=== PATIENT | male | born 1945 | race Caucasian/White ===

== ENCOUNTER 2016-08-02 12:18 | Outpatient (CLI) | payer MEDICARE | END 2016-08-02 23:59 | DX: E78.2 Mixed hyperlipidemia (principal); G89.29 Other chronic pain; Z79.899 Other long term (current) drug therapy; Z72.89 Other problems related to lifestyle; J44.9 Chronic obstructive pulmonary disease, unspecified; R97.20 Elevated prostate specific antigen [PSA] | CPT/HCPCS: 36415; 80053; 80061; 84443; 85025; 86803; G0103 ==

== ENCOUNTER 2016-11-04 08:31 | Outpatient (CLI) | payer MEDICARE | END 2016-11-04 08:32 | disposition home or self-care (01) | DX: B18.2 Chronic viral hepatitis C (principal) ==

== ENCOUNTER 2016-11-19 08:10 | Outpatient (CLI) | payer MEDICARE ==
[2016-11-19 08:38] LABS: BASOPHILS # (AUTO) 0.1 10^3/uL (0.0-0.1); BASOPHILS % (AUTO) 0.8 %; EOSINOPHILS # (AUTO) 0.6 10^3/uL (0.0-0.7); EOSINOPHILS % (AUTO) 7.9 %; HCT - HEMATOCRIT 49.3 % (42.0-52.0); HGB - HEMOGLOBIN 17.1 g/dL (14.0-18.0); LYMPHOCYTES # (AUTO) 2.3 10^3/uL (1.5-3.5); LYMPHOCYTES % (AUTO) 29.8 %; MEAN CORPUSCULAR HEMOGLOBIN 32.1 pg (27.0-31.0); MEAN CORPUSCULAR HGB CONC 34.7 g/dL (32.0-36.0); MEAN CORPUSCULAR VOLUME 92.6 fL (80.0-94.0); MEAN PLATELET VOLUME 8.7 fL (7.4-11.4); MONOCYTES # (AUTO) 0.9 10^3/uL (0.0-1.0); NEUTROPHILS # (AUTO) 3.9 10^3/uL (1.5-6.6); NEUTROPHILS % (AUTO) 49.5 %; NUCLEATED RED BLOOD CELLS AUTO 0.1 /100WBC; RED BLOOD COUNT 5.32 10^6/uL (4.70-6.10); RED CELL DISTRIBUTION WIDTH 13.8 % (12.0-15.0); UNCORRECTED WHITE BLOOD COUNT 7.9 x10^3/uL; WHITE BLOOD COUNT 7.9 x10^3/uL (4.8-10.8)
[2016-11-19 08:52] LABS: PT - PROTHROMBIN TIME 11.2 secs (9.9-12.6)
[2016-11-19 08:55] LABS: BILIRUBIN,DIRECT 0.2 mg/dL (0.1-0.5); CALCIUM 9.5 mg/dL (8.5-10.3); CREATININE 1.1 mg/dL (0.6-1.2); TOTAL PROTEIN 7.4 g/dL (6.7-8.2)
== END 2016-11-19 08:11 | disposition home or self-care (01) ==
LOC: LAB 08:10
PROVIDERS: ATTEND Internal Medicine
DX: B18.2 Chronic viral hepatitis C (principal)
CPT/HCPCS: 36415; 80048; 80076; 85025; 85610; 87522

== ENCOUNTER 2017-01-14 08:00 | Outpatient (CLI) | payer MEDICARE ==
[2017-01-14 12:22] LABS: BASOPHILS % (AUTO) 0.5 %; EOSINOPHILS # (AUTO) 0.3 10^3/uL (0.0-0.7); EOSINOPHILS % (AUTO) 4.5 %; HCT - HEMATOCRIT 46.9 % (42.0-52.0); HGB - HEMOGLOBIN 16.2 g/dL (14.0-18.0); LYMPHOCYTES # (AUTO) 2.5 10^3/uL (1.5-3.5); LYMPHOCYTES % (AUTO) 32.8 %; MEAN CORPUSCULAR HGB CONC 34.6 g/dL (32.0-36.0); MEAN CORPUSCULAR VOLUME 92.6 fL (80.0-94.0); MEAN PLATELET VOLUME 9.1 fL (7.4-11.4); MONOCYTES # (AUTO) 0.8 10^3/uL (0.0-1.0); MONOCYTES % (AUTO) 10.7 %; NEUTROPHILS # (AUTO) 3.9 10^3/uL (1.5-6.6); NEUTROPHILS % (AUTO) 51.5 %; NUCLEATED RED BLOOD CELLS AUTO 0.1 /100WBC; RED BLOOD COUNT 5.06 10^6/uL (4.70-6.10); RED CELL DISTRIBUTION WIDTH 13.7 % (12.0-15.0); UNCORRECTED WHITE BLOOD COUNT 7.5 x10^3/uL; WHITE BLOOD COUNT 7.5 x10^3/uL (4.8-10.8)
[2017-01-14 12:52] LABS: ALBUMIN/GLOBULIN RATIO 1.3 (1.0-2.2); CALCIUM 9.4 mg/dL (8.5-10.3); POTASSIUM 3.9 mmol/L (3.5-5.0); TOTAL PROTEIN 7.2 g/dL (6.7-8.2)
== END 2017-01-14 08:01 | disposition home or self-care (01) ==
LOC: LAB.N 08:00
PROVIDERS: ATTEND Internal Medicine
DX: B18.2 Chronic viral hepatitis C (principal)
CPT/HCPCS: 36415; 80053; 85025

== ENCOUNTER 2017-01-28 08:45 | Outpatient (CLI) | payer MEDICARE ==
[2017-01-28 13:00] LABS: BASOPHILS % (AUTO) 0.5 %; EOSINOPHILS # (AUTO) 0.3 10^3/uL (0.0-0.7); EOSINOPHILS % (AUTO) 3.5 %; HCT - HEMATOCRIT 46.9 % (42.0-52.0); HGB - HEMOGLOBIN 16.2 g/dL (14.0-18.0); LYMPHOCYTES % (AUTO) 27.9 %; MEAN CORPUSCULAR HEMOGLOBIN 31.9 pg (27.0-31.0); MEAN CORPUSCULAR HGB CONC 34.5 g/dL (32.0-36.0); MEAN CORPUSCULAR VOLUME 92.6 fL (80.0-94.0); MONOCYTES # (AUTO) 0.6 10^3/uL (0.0-1.0); NEUTROPHILS # (AUTO) 4.2 10^3/uL (1.5-6.6); NEUTROPHILS % (AUTO) 59.1 %; NUCLEATED RED BLOOD CELLS AUTO 0.1 /100WBC; RED BLOOD COUNT 5.07 10^6/uL (4.70-6.10); RED CELL DISTRIBUTION WIDTH 13.4 % (12.0-15.0); UNCORRECTED WHITE BLOOD COUNT 7.1 x10^3/uL; WHITE BLOOD COUNT 7.1 x10^3/uL (4.8-10.8)
[2017-01-28 13:12] LABS: ALBUMIN/GLOBULIN RATIO 1.4 (1.0-2.2); BILIRUBIN,TOTAL 0.7 mg/dL (0.2-1.0); CALCIUM 9.6 mg/dL (8.5-10.3); CREATININE 1.1 mg/dL (0.6-1.2); POTASSIUM 3.8 mmol/L (3.5-5.0); TOTAL PROTEIN 7.2 g/dL (6.7-8.2)
== END 2017-01-28 08:46 | disposition home or self-care (01) ==
LOC: LAB.N 08:45
PROVIDERS: ATTEND Internal Medicine
DX: B18.2 Chronic viral hepatitis C (principal)
CPT/HCPCS: 36415; 80053; 85025; 87522

== ENCOUNTER 2017-03-25 08:59 | Outpatient (CLI) | payer MEDICARE ==
[2017-03-25 13:19] LABS: BASOPHILS % (AUTO) 0.7 %; EOSINOPHILS # (AUTO) 0.2 10^3/uL (0.0-0.7); EOSINOPHILS % (AUTO) 3.2 %; HCT - HEMATOCRIT 46.9 % (42.0-52.0); HGB - HEMOGLOBIN 16.1 g/dL (14.0-18.0); LYMPHOCYTES # (AUTO) 2.3 10^3/uL (1.5-3.5); LYMPHOCYTES % (AUTO) 31.9 %; MEAN CORPUSCULAR HEMOGLOBIN 31.9 pg (27.0-31.0); MEAN CORPUSCULAR HGB CONC 34.4 g/dL (32.0-36.0); MEAN CORPUSCULAR VOLUME 92.6 fL (80.0-94.0); MEAN PLATELET VOLUME 8.8 fL (7.4-11.4); MONOCYTES # (AUTO) 0.6 10^3/uL (0.0-1.0); MONOCYTES % (AUTO) 8.2 %; NUCLEATED RED BLOOD CELLS AUTO 0.1 /100WBC; RED BLOOD COUNT 5.06 10^6/uL (4.70-6.10); RED CELL DISTRIBUTION WIDTH 13.4 % (12.0-15.0); UNCORRECTED WHITE BLOOD COUNT 7.2 x10^3/uL; WHITE BLOOD COUNT 7.2 x10^3/uL (4.8-10.8)
[2017-03-25 13:46] LABS: ALBUMIN/GLOBULIN RATIO 1.4 (1.0-2.2); BILIRUBIN,TOTAL 0.8 mg/dL (0.2-1.0); CALCIUM 9.1 mg/dL (8.5-10.3); POTASSIUM 3.5 mmol/L (3.5-5.0); TOTAL PROTEIN 6.9 g/dL (6.7-8.2)
== END 2017-03-25 09:00 | disposition home or self-care (01) ==
LOC: LAB.N 08:59
PROVIDERS: ATTEND Internal Medicine
DX: B18.2 Chronic viral hepatitis C (principal)
CPT/HCPCS: 36415; 80053; 85025; 87522

== ENCOUNTER 2017-05-03 16:21 | Outpatient (CLI) | payer MEDICARE ==
[2017-05-03 16:38] LABS: BASOPHILS # (AUTO) 0.1 10^3/uL (0.0-0.1); EOSINOPHILS # (AUTO) 0.2 10^3/uL (0.0-0.7); EOSINOPHILS % (AUTO) 2.8 %; HGB - HEMOGLOBIN 16.3 g/dL (14.0-18.0); LYMPHOCYTES # (AUTO) 2.8 10^3/uL (1.5-3.5); LYMPHOCYTES % (AUTO) 34.6 %; MEAN CORPUSCULAR HEMOGLOBIN 31.9 pg (27.0-31.0); MEAN CORPUSCULAR HGB CONC 34.7 g/dL (32.0-36.0); MEAN CORPUSCULAR VOLUME 91.9 fL (80.0-94.0); MEAN PLATELET VOLUME 8.2 fL (7.4-11.4); MONOCYTES # (AUTO) 0.9 10^3/uL (0.0-1.0); MONOCYTES % (AUTO) 11.1 %; NEUTROPHILS # (AUTO) 4.1 10^3/uL (1.5-6.6); NEUTROPHILS % (AUTO) 50.5 %; RED BLOOD COUNT 5.11 10^6/uL (4.70-6.10); RED CELL DISTRIBUTION WIDTH 13.6 % (12.0-15.0); UNCORRECTED WHITE BLOOD COUNT 8.1 x10^3/uL; WHITE BLOOD COUNT 8.1 x10^3/uL (4.8-10.8)
[2017-05-03 16:54] LABS: ALBUMIN/GLOBULIN RATIO 1.4 (1.0-2.2); BILIRUBIN,TOTAL 0.4 mg/dL (0.2-1.0); BUN - BLOOD UREA NITROGEN 14 mg/dL (6-20); CALCIUM 9.3 mg/dL (8.5-10.3); CARBON DIOXIDE - CO2 25 mmol/L (21-32); CHLORIDE 105 mmol/L (101-111); CREATININE 0.8 mg/dL (0.6-1.2); GFR - MDRD 96 (>89); GLUCOSE 94 mg/dL (70-100); LIPASE 31 U/L (22-51); POTASSIUM 3.8 mmol/L (3.5-5.0); SODIUM 137 mmol/L (135-145); TOTAL PROTEIN 7.5 g/dL (6.7-8.2)
== END 2017-05-03 16:22 | disposition home or self-care (01) ==
LOC: LAB 16:21
PROVIDERS: ATTEND Physician Assistant Medical
DX: R10.11 Right upper quadrant pain (principal); R19.7 Diarrhea, unspecified
CPT/HCPCS: 36415; 80053; 83690; 85025; 85651; 86140

== ENCOUNTER 2017-05-05 11:30 | Outpatient (CLI) | payer MEDICARE ==
[2017-05-07 11:16] LABS: TEST RESULT REPORT
== END 2017-05-05 11:31 | disposition home or self-care (01) ==
LOC: LAB.R 11:30
PROVIDERS: ATTEND Physician Assistant Medical
DX: R19.7 Diarrhea, unspecified (principal)
CPT/HCPCS: 81599; 82705; 83630; 87045; 87046; 87329; 87493; 89055

== ENCOUNTER 2017-06-24 09:00 | Outpatient (CLI) | payer MEDICARE ==
[2017-06-24 12:54] LABS: BASOPHILS % (AUTO) 0.3 %; EOSINOPHILS # (AUTO) 0.2 10^3/uL (0.0-0.7); EOSINOPHILS % (AUTO) 2.6 %; HGB - HEMOGLOBIN 16.3 g/dL (14.0-18.0); LYMPHOCYTES # (AUTO) 2.5 10^3/uL (1.5-3.5); MEAN CORPUSCULAR HEMOGLOBIN 31.5 pg (27.0-31.0); MEAN CORPUSCULAR HGB CONC 33.9 g/dL (32.0-36.0); MEAN CORPUSCULAR VOLUME 92.9 fL (80.0-94.0); MONOCYTES # (AUTO) 0.8 10^3/uL (0.0-1.0); MONOCYTES % (AUTO) 9.7 %; NEUTROPHILS # (AUTO) 4.9 10^3/uL (1.5-6.6); NEUTROPHILS % (AUTO) 58.4 %; PLT - PLATELET COUNT 231 10^3/uL (130-450); RED BLOOD COUNT 5.19 10^6/uL (4.70-6.10); RED CELL DISTRIBUTION WIDTH 13.8 % (12.0-15.0); WHITE BLOOD COUNT 8.5 x10^3/uL (4.8-10.8)
[2017-06-24 12:55] LABS: ALBUMIN/GLOBULIN RATIO 1.3 (1.0-2.2); BILIRUBIN,TOTAL 0.8 mg/dL (0.2-1.0); CALCIUM 9.1 mg/dL (8.5-10.3); TOTAL PROTEIN 7.2 g/dL (6.7-8.2)
[2017-06-30 01:03] LABS: HCV RNA QNT <1.18 NOT DETECTED Log IU/mL (<1.18); HCV RNA QUANT RT PCR <15 NOT DETECTED IU/mL (<15)
== END 2017-06-24 09:01 | disposition home or self-care (01) ==
LOC: LAB.N 09:00
PROVIDERS: ATTEND Internal Medicine
DX: B18.2 Chronic viral hepatitis C (principal)
CPT/HCPCS: 36415; 80053; 85025; 87522

== ENCOUNTER 2017-10-20 09:21 | Outpatient (CLI) | payer MEDICARE ==
[2017-10-20 12:41] LABS: BASOPHILS % (AUTO) 0.4 %; EOSINOPHILS # (AUTO) 0.1 10^3/uL (0.0-0.7); EOSINOPHILS % (AUTO) 1.6 %; HGB - HEMOGLOBIN 16.8 g/dL (14.0-18.0); LYMPHOCYTES # (AUTO) 2.4 10^3/uL (1.5-3.5); MEAN CORPUSCULAR HEMOGLOBIN 31.8 pg (27.0-31.0); MEAN CORPUSCULAR HGB CONC 34.2 g/dL (32.0-36.0); MEAN PLATELET VOLUME 8.9 fL (7.4-11.4); MONOCYTES # (AUTO) 1.2 10^3/uL (0.0-1.0); MONOCYTES % (AUTO) 16.7 %; NEUTROPHILS # (AUTO) 3.2 10^3/uL (1.5-6.6); NEUTROPHILS % (AUTO) 46.3 %; PLT - PLATELET COUNT 206 10^3/uL (130-450); RED BLOOD COUNT 5.29 10^6/uL (4.70-6.10); RED CELL DISTRIBUTION WIDTH 14.2 % (12.0-15.0); WHITE BLOOD COUNT 6.9 x10^3/uL (4.8-10.8)
[2017-10-20 12:51] LABS: ALBUMIN/GLOBULIN RATIO 1.3 (1.0-2.2); ALKALINE PHOSPHATASE 67 IU/L (42-121); ALT ALANINE AMINOTRANSFERASE 27 IU/L (10-60); AST ASPARTATE AMINOTRANSFERASE 23 IU/L (10-42); BILIRUBIN,TOTAL 0.8 mg/dL (0.2-1.0); BUN - BLOOD UREA NITROGEN 14 mg/dL (6-20); CALCIUM 9.2 mg/dL (8.5-10.3); CARBON DIOXIDE - CO2 24 mmol/L (21-32); CHLORIDE 107 mmol/L (101-111); CHOL/HDL RATIO 5.1 (<5.0); CHOLESTEROL 199 mg/dL; CREATININE 0.9 mg/dL (0.6-1.2); GFR - MDRD 83 (>89); GLUCOSE 91 mg/dL (70-100); HDL CHOLESTEROL 39 mg/dL; LDL CHOLESTEROL,CALCULATED 133 mg/dL; LDL/HDL RATIO 3.4 (<3.6); SODIUM 138 mmol/L (135-145); TOTAL PROTEIN 7.1 g/dL (6.7-8.2); VLDL CHOLESTEROL 27 mg/dL
== END 2017-10-20 09:22 ==
LOC: LAB.N 09:21
PROVIDERS: ATTEND Physician Assistant Medical
DX: Z79.899 Other long term (current) drug therapy (principal); E78.2 Mixed hyperlipidemia
CPT/HCPCS: 36415; 80053; 80061; 83721; 84443; 85025

== ENCOUNTER 2017-11-17 06:55 | Day surgery (SDC) | payer MEDICARE ==
[2017-11-17] MEDS ORDERED: LACTATED RINGERS 1,000 ML IV ONE (07:04)
[2017-11-17] MEDS ORDERED: MIDAZOLAM 2 MG/2 ML VIAL IVP ONE (08:57)
[2017-11-17] MEDS ORDERED: fentaNYL 250 MCG/5 ML VIAL IVP ONE (08:57)
[2017-11-17] MEDS ORDERED: LIDO GARGLE 30 ML BOTTLE ONE (09:00)
[2017-11-17] MEDS ORDERED: LIDO GARGLE 30 ML BOTTLE PO ONE (09:04)
[2017-11-17 10:12] VITALS: BP 114/75
== END 2017-11-17 06:56 | disposition home or self-care (01) ==
LOC: SDS 06:55
PROVIDERS: ATTEND Internal Medicine Gastroenterology
PROC: 0DB38ZX Excision of Lower Esophagus, Via Natural or Artificial Opening Endoscopic, Diagnostic (ICD-10-PCS; 2017-11-17)
PROC: 0DBN8ZX Excision of Sigmoid Colon, Via Natural or Artificial Opening Endoscopic, Diagnostic (ICD-10-PCS; 2017-11-17)
PROC: 0DB98ZX Excision of Duodenum, Via Natural or Artificial Opening Endoscopic, Diagnostic (ICD-10-PCS; principal; 2017-11-17 08:15)
PROC: 0DB78ZX Excision of Stomach, Pylorus, Via Natural or Artificial Opening Endoscopic, Diagnostic (ICD-10-PCS; 2017-11-17 08:15)
DX: R19.7 Diarrhea, unspecified (principal); K44.9 Diaphragmatic hernia without obstruction or gangrene; K29.90 Gastroduodenitis, unspecified, without bleeding; K31.9 Disease of stomach and duodenum, unspecified; K22.10 Ulcer of esophagus without bleeding; K63.5 Polyp of colon; J43.9 Emphysema, unspecified; Z87.891 Personal history of nicotine dependence
CPT/HCPCS: 43239; 45380; 87081; A9270; J3010; J7120; 88305

== ENCOUNTER 2018-03-03 08:34 | Outpatient (CLI) | payer MEDICARE ==
[2018-03-03 12:23] LABS: BASOPHILS # (AUTO) 0.1 10^3/uL (0.0-0.1); BASOPHILS % (AUTO) 0.7 %; EOSINOPHILS # (AUTO) 0.3 10^3/uL (0.0-0.7); EOSINOPHILS % (AUTO) 3.4 %; HGB - HEMOGLOBIN 16.6 g/dL (14.0-18.0); LYMPHOCYTES # (AUTO) 2.4 10^3/uL (1.5-3.5); LYMPHOCYTES % (AUTO) 29.2 %; MEAN CORPUSCULAR HEMOGLOBIN 32.4 pg (27.0-31.0); MEAN CORPUSCULAR HGB CONC 34.8 g/dL (32.0-36.0); MONOCYTES # (AUTO) 0.8 10^3/uL (0.0-1.0); MONOCYTES % (AUTO) 10.4 %; NEUTROPHILS # (AUTO) 4.6 10^3/uL (1.5-6.6); NEUTROPHILS % (AUTO) 56.3 %; PLT - PLATELET COUNT 242 10^3/uL (130-450); RED BLOOD COUNT 5.13 10^6/uL (4.70-6.10); RED CELL DISTRIBUTION WIDTH 13.9 % (12.0-15.0); WHITE BLOOD COUNT 8.1 x10^3/uL (4.8-10.8)
[2018-03-03 12:45] LABS: CHOL/HDL RATIO 4.9 (<5.0); CHOLESTEROL 219 mg/dL; HDL CHOLESTEROL 45 mg/dL; LDL CHOLESTEROL,CALCULATED 142 mg/dL; LDL/HDL RATIO 3.2 (<3.6); VLDL CHOLESTEROL 32 mg/dL
== END 2018-03-03 08:35 | disposition home or self-care (01) ==
LOC: LAB.N 08:34
PROVIDERS: ATTEND Physician Assistant Medical
DX: D72.821 Monocytosis (symptomatic) (principal); E78.2 Mixed hyperlipidemia; Z79.899 Other long term (current) drug therapy
CPT/HCPCS: 36415; 80061; 83721; 85025

== ENCOUNTER 2018-03-08 10:07 | Emergency (ER) | payer MEDICARE ==
[2018-03-08 11:17] LABS: BILIRUBIN,URINE NEGATIVE (NEGATIVE); GLUCOSE, URINE (UA) NEGATIVE (NEGATIVE); KETONES,URINE (UA) NEGATIVE (NEGATIVE); LEUKOCYTE ESTERASE, URINE NEGATIVE (NEGATIVE); NITRITE,URINE NEGATIVE (NEGATIVE); OCCULT BLOOD,URINE MODERATE (NEGATIVE); PROTEIN,URINE NEGATIVE (NEGATIVE); UROBILINOGEN,URINE 0.2 (NORMAL) E.U./dL (NORMAL)
[2018-03-08] MEDS ORDERED: SODIUM CHLORIDE 0.9% 1,000 ML IV ONE (11:17)
[2018-03-08] MEDS ORDERED: KETOROLAC 60 MG/2 ML VIAL IVP STA (11:17)
[2018-03-08 11:18] LABS: CLARITY,URINE CLEAR (CLEAR)
--- NOTE | 2018-03-08 11:20 | ED Physician Documentation ---
History of Present Illness - Stated complaint Stated Complaint: SIDE PX - Chief complaint Chief Complaint: Abd Pain - History obtained from History obtained from: Patient - History of Present Illness Timing: Last night Pain level max: 7 Pain level now: 5 - Additonal information Additional information: Patient is a 73-year-old male who complains of urinary frequency and dysuria since last night. Also has developed right flank pain today. Has had one kidney stone in the past but states this does not feel that bad. Denies any fevers. Denies any hematuria. No vomiting. Has not taken anything for the pain. Nothing makes it better or worse Review of Systems Constitutional: denies: Fever, Chills GI: denies: Vomiting, Diarrhea Skin: denies: Rash Musculoskeletal: denies: Neck pain Neurologic: denies: Headache PD PAST MEDICAL HISTORY - Past Medical History Cardiovascular: None Respiratory: COPD Endocrine/Autoimmune: None GI: GERD : Benign prostate hypertrophy Musculoskeletal: Osteoarthritis Derm: None - Past Surgical History Past Surgical History: Yes General: Cholecystectomy, Appendectomy - Present Medications Home Medications: Ambulatory Orders Medication Instructions Recorded Confirmed Albuterol Sulf [Ventolin Hfa 1 - 2 puffs INH Q4HR PRN 11/16/17 11/16/17 Inhaler] Budesonide/Formoterol Fumarate 1 puffs PO DAILY 11/16/17 11/17/17 [Symbicort 160-4.5 Mcg Inhaler] Niacin (Inositol Niacinate) 500 mg PO DAILY 11/16/17 11/17/17 [Niacin 500 mg Capsule] Hydrocodone/Acetaminophen 1 - 2 each PO Q6H PRN #14 tablet 03/08/18 [Hydrocodon-Acetaminophen 5-325] Ibuprofen [Motrin] 800 mg PO Q8H PRN #30 tablet 03/08/18 Ondansetron Odt [Zofran] 4 mg TL Q6H PRN #10 tablet 03/08/18 Tamsulosin HCl [Flomax] 0.4 mg PO 03/08/18 - Allergies Allergies/Adverse Reactions: Allergies Allergy/AdvReac Type Severity Reaction Status Date / Time codeine Allergy Mild Emesis Verified 03/08/18 11:10 Latex, Natural Rubber Allergy Rash Verified 03/08/18 11:10 - Social History Does the pt smoke?: No Smoking Status: Never smoker Does the pt drink ETOH?: No Does the pt have substance abuse?: No - Immunizations Immunizations are current?: Yes - POLST Patient has POLST: No PD ED PE NORMAL - Vitals Vital signs reviewed: Yes - General General: Alert and oriented X 3, No acute distress, Well developed/nourished - HEENT HEENT: PERRL, Moist mucous membranes - Neck Neck: Supple, no meningeal sign - Cardiac Cardiac: RRR, Strong equal pulses - Respiratory Respiratory: No respiratory distress, Clear bilaterally - Abdomen Abdomen: Soft, Non tender, Non distended - Back Back: No CVA TTP, No spinal TTP - Derm Derm: Warm and dry - Extremities Extremities: No edema, No calf tenderness / cord - Neuro Neuro: Alert and oriented X 3 - Psych Psych: Normal mood, Normal affect Results - Vitals Vitals: Vital Signs - 24 hr 03/08/18 10:32 Temperature 36 C L Heart Rate 90 Respiratory 20 Rate Blood Pressure 117/72 O2 Saturation 99 Oxygen O2 Source Room air - Labs Labs: Laboratory Tests 03/08/18 10:53 Urine Color YELLOW Urine Clarity CLEAR Urine pH 7.0 Ur Specific [place] 1.010 Urine Protein NEGATIVE Urine Glucose (UA) NEGATIVE Urine Ketones NEGATIVE Urine Occult Blood MODERATE H Urine Nitrite NEGATIVE Urine Bilirubin NEGATIVE Urine Urobilinogen 0.2 (NORMAL) Ur Leukocyte Esterase NEGATIVE Ur Microscopic Review INDICATED Urine Culture Comments Not Reportable - Rads (name of study) CT abd/pelvis Radiology: Prelim report reviewed, EMP read contemporaneously, See rad report (3 mm calculus within the right ureterovesicular junction versus base of the bladder with mild hydronephrosis, mild perinephric fat stranding and mild hydroureter. ) PD MEDICAL DECISION MAKING - ED course Complexity details: reviewed results, re-evaluated patient, considered differential, d/w patient ED course: Patient is a 73-year-old male with what appears to be a right-sided ureteral stone that passed in the emergency department. Pain resolved. We will continue supportive care and follow-up with his doctor. Patient counseled regarding signs and symptoms for which I believe and urgent re-evaluation would be necessary. Patient with good understanding of and agreement to plan and is comfortable going home at this time This document was made in part using voice recognition software. While efforts are made to proofread this document, sound alike and grammatical errors may occur. - Sepsis Event Vital Signs: Vital Signs - 24 hr 03/08/18 10:32 Temperature 36 C L Heart Rate 90 Respiratory 20 Rate Blood Pressure 117/72 O2 Saturation 99 Oxygen O2 Source Room air Departure - Departure Disposition: 01 Home, Self Care Clinical Impression: Ureteral calculus, right Condition: Good Instructions: ED Stone Renal W Colic Follow-Up: Rica Vigil PA-C [Primary Care Provider] - Within 1 week Prescriptions: Hydrocodone/Acetaminophen [Hydrocodon-Acetaminophen 5-325] 1 - 2 each PO Q6H PRN #14 tablet PRN Reason: pain Ibuprofen [Motrin] 800 mg PO Q8H PRN #30 tablet PRN Reason: PAIN &/OR FEVER Ondansetron Odt [Zofran] 4 mg TL Q6H PRN #10 tablet PRN Reason: Nausea / Vomiting Comments: Return if you worsen. You do have a small kidney stone and this should pass. Do not drink alcohol or drive while on narcotic pain medicine. Note that many narcotic pain relievers also contain tylenol/acetaminophen. Please ensure that your total dose of acetaminophen from all sources does not exceed 3 grams (3000mg) per day. You may constipated on this medication, take a stool softener such as "Colace" twice a day while you are on it. Also recommend a ibxj-xvy-hulpsrr laxative such as senna or MiraLAX any day that you do not have a bowel movement. If you received narcotic pain medication in the emergency department, do not drive or operate machinery for the next 24 hours. Discharge Date/Time: 03/08/18 12:43
[2018-03-08 11:21] LABS: BACTERIA,URINE None Seen /HPF (None Seen); RBC,URINE 0-5 /HPF (0-5); SQUAMOUS EPITHELIAL CELL,UR RARE Squamous (<= Few)
[2018-03-08] MEDS ORDERED: IOPAMIDOL-300 100 ML VIAL ONE (11:21)
[2018-03-08 11:24] LABS: BASOPHILS # (AUTO) 0.1 10^3/uL (0.0-0.1); BASOPHILS % (AUTO) 0.5 %; EOSINOPHILS # (AUTO) 0.1 10^3/uL (0.0-0.7); EOSINOPHILS % (AUTO) 1.1 %; LYMPHOCYTES # (AUTO) 1.7 10^3/uL (1.5-3.5); LYMPHOCYTES % (AUTO) 15.5 %; MEAN CORPUSCULAR HEMOGLOBIN 32.3 pg (27.0-31.0); MEAN CORPUSCULAR VOLUME 92.2 fL (80.0-94.0); MEAN PLATELET VOLUME 8.1 fL (7.4-11.4); MONOCYTES # (AUTO) 0.8 10^3/uL (0.0-1.0); MONOCYTES % (AUTO) 7.7 %; NEUTROPHILS # (AUTO) 8.1 10^3/uL (1.5-6.6); NEUTROPHILS % (AUTO) 75.2 %; PLT - PLATELET COUNT 245 10^3/uL (130-450); RED BLOOD COUNT 5.26 10^6/uL (4.70-6.10); WHITE BLOOD COUNT 10.8 x10^3/uL (4.8-10.8)
[2018-03-08 11:36] LABS: ALBUMIN 4.1 g/dL (3.2-5.5); ALBUMIN/GLOBULIN RATIO 1.3 (1.0-2.2); BILIRUBIN,TOTAL 0.7 mg/dL (0.2-1.0); CALCIUM 9.3 mg/dL (8.5-10.3); TOTAL PROTEIN 7.2 g/dL (6.7-8.2)
[2018-03-08] MEDS ORDERED: IOPAMIDOL-300 100 ML VIAL IVP ONE (12:36)
[2018-03-08 12:44] VITALS: BP 121/64
--- NOTE | 2018-03-08 13:08 | CT Report ---
Reason: R flank pain, dysuria Procedure Date: 03/08/2018 Accession Number: [id number] / [id number] Procedure: CT - Abdomen/Pelvis W/ CPT Code: FULL RESULT: EXAM: CT ABDOMEN AND PELVIS EXAM DATE: 03/08/2018 12:17 PM. CLINICAL HISTORY: R flank pain, dysuria. COMPARISONS: None. TECHNIQUE: Routine helical CT imaging was performed through the abdomen and pelvis. IV contrast: ISOVUE 300 100mL. Enteric contrast: No. Reconstructions: Coronal and sagittal. In accordance with CT protocol optimization, one or more of the following dose reduction techniques were utilized for this exam: automated exposure control, adjustment of mA and/or KV based on patient size, or use of iterative reconstructive technique. FINDINGS: Lung Bases: Linear changes are noted in the lung bases that most likely represent atelectasis. Solid organs: The liver, spleen, pancreas, and adrenal glands are without evidence of an enhancing mass. There are postoperative changes consistent with a cholecystectomy. Mild hydronephrosis and hydroureter seen involving the right renal collecting system. There is mild right perinephric fat stranding. There is a 3 mm calculus at the location of the right ureterovesicular junction versus base of bladder (image 74 of series 4). The left kidney is without evidence of hydronephrosis or hydroureter. No renal mass is identified. Peritoneal Cavity/Bowel: The appendix is normal in appearance. There are no dilated loops of bowel to suggest the presence of an obstruction. There is no evidence of diverticulosis or diverticulitis. Pelvic Organs: No mass or cyst is seen within the pelvis. Vasculature: There is atherosclerosis of the aorta and its branches. There is no evidence of abdominal aortic aneurysm. Bones: Degenerative changes of the lumbar spine are noted. IMPRESSION: 3 mm calculus within the right ureterovesicular junction versus base of the bladder with mild hydronephrosis, mild perinephric fat stranding and mild hydroureter. Atherosclerosis of the aorta and its branches. RADIA
== END 2018-03-08 12:43 | disposition home or self-care (01) ==
LOC: ED 10:07
DX: N13.2 Hydronephrosis with renal and ureteral calculous obstruction (principal); J44.9 Chronic obstructive pulmonary disease, unspecified
CPT/HCPCS: 36415; 74177; 80053; 81001; 83690; 85025; 96361; 96374; 99283; 99284; Q9967; 81003; 87086

== ENCOUNTER 2018-05-01 11:53 | Outpatient (CLI) | payer MEDICARE ==
--- NOTE | 2018-05-01 13:15 | XRAY Report ---
Reason: HAND,PAIN,LEFT Procedure Date: 05/01/2018 Accession Number: [id number] / [id number] Procedure: XR - Hand 3 View LT CPT Code: FULL RESULT: EXAM: LEFT HAND RADIOGRAPHY EXAM DATE: 05/01/2018 12:01 PM. CLINICAL HISTORY: HAND,PAIN,LEFT. COMPARISON: XR HAND MIN 3 VIEWS 01/18/2010 7:13 PM. TECHNIQUE: 3 views. FINDINGS: Bones: Acute, nondisplaced fracture through the proximal to mid aspect of the fifth proximal phalanx. The fracture line does not definitely involve the articular surface. No abnormal angulation. No other fracture. The bones appear diffusely demineralized. Joints: No dislocation. Mild to moderate degenerative change. Soft Tissues: Soft tissue swelling about the fifth digit. IMPRESSION: Acute, nondisplaced fracture of the proximal phalanx of the fifth digit. RADIA
== END 2018-05-01 11:54 | disposition home or self-care (01) ==
LOC: DI 11:53
PROVIDERS: ATTEND Physician Assistant Medical
DX: S62.647A Nondisplaced fracture of proximal phalanx of left little finger, initial encounter for closed fracture (principal)

== ENCOUNTER 2018-07-21 08:00 | Outpatient (CLI) | payer MEDICARE ==
[2018-07-21 14:28] LABS: CHOL/HDL RATIO 4.5 (<5.0); CHOLESTEROL 210 mg/dL; HDL CHOLESTEROL 47 mg/dL; LDL CHOLESTEROL,CALCULATED 135 mg/dL; LDL/HDL RATIO 2.9 (<3.6); VLDL CHOLESTEROL 28 mg/dL
== END 2018-07-21 23:59 | disposition home or self-care (01) ==
LOC: LAB.N 08:00
PROVIDERS: ATTEND Physician Assistant Medical
DX: Z79.899 Other long term (current) drug therapy (principal); E78.2 Mixed hyperlipidemia
CPT/HCPCS: 36415; 80061; 83721

== ENCOUNTER 2018-09-30 08:24 | Outpatient (CLI) | payer MEDICARE ==
--- NOTE | 2018-10-01 13:06 | XRAY Report ---
Reason: HISTORY OF MALIGNANT NEOPLASM OF LEFT BREAST,IMPIN Procedure Date: 09/30/2018 Accession Number: [id number] / [id number] Procedure: XR - Foot 3 View RT CPT Code: FULL RESULT: EXAM: RIGHT FOOT RADIOGRAPHY EXAM DATE: 09/30/2018 08:49 AM. CLINICAL HISTORY: HISTORY OF MALIGNANT NEOPLASM OF LEFT BREAST, gout attack. Evaluate for erosion.. COMPARISON: None. TECHNIQUE: 3 views. FINDINGS: Bones: There is moderate sclerosis of the first metatarsal phalangeal joint. There is no fracture. No erosion. Joints: There is moderate joint space narrowing of the first metatarsal phalangeal joint. There is mild spurring and sclerosis with joint space narrowing of the third distal interphalangeal joint. Soft Tissues: No abnormal soft tissue calcification. IMPRESSION: 1. Joint space narrowing and periarticular sclerosis of the first metatarsal phalangeal joint and third distal interphalangeal joint. No erosions or bony destruction. RADIA
--- NOTE | 2018-10-01 23:22 | XRAY Report ---
Reason: HISTORY OF MALIGNANT NEOPLASM OF LEFT BREAST,IMPIN Procedure Date: 09/30/2018 Accession Number: [id number] / [id number] Procedure: XR - Shoulder 3 View LT CPT Code: FULL RESULT: EXAM: LEFT SHOULDER RADIOGRAPHY EXAM DATE: 09/30/2018 08:46 AM. CLINICAL HISTORY: Chronic shoulder pain. HISTORY OF MALIGNANT NEOPLASM OF LEFT BREAST,IMPIN. COMPARISON: SHOULDER 3 VIEW RT 04/23/2013 9:31 AM CXR2V 02/22/2006 9:30 AM SHOULDER 3 VIEW RT 09/30/2018 8:26 AM. TECHNIQUE: 3 views. FINDINGS: Mild sclerosis seen at the distal clavicle more suggestive for mild degenerative change. A small blastic bone metastasis not completely excluded but seems less likely. Minimal focal area of sclerosis seen laterally at the left humeral head at the greater tuberosity region more suggestive for a bone island but again a tiny blastic bone metastasis is not excluded. Otherwise, no evidence for a metastasis in the left shoulder. No acute fracture or dislocation and alignment is within normal limits. The glenohumeral joint appears within normal limits. IMPRESSION: Mild sclerosis seen at the distal clavicle more suggestive for mild degenerative change. A small blastic bone metastasis not completely excluded but seems less likely. Minimal focal area of sclerosis seen laterally at the left humeral head at the greater tuberosity region more suggestive for a bone island but again a tiny blastic bone metastasis is not excluded. Otherwise, no evidence for a metastasis in the left shoulder. No acute fracture or dislocation and alignment is within normal limits. RADIA
--- NOTE | 2018-10-01 23:25 | XRAY Report ---
Reason: HISTORY OF MALIGNANT NEOPLASM OF LEFT BREAST,IMPIN Procedure Date: 09/30/2018 Accession Number: [id number] / [id number] Procedure: XR - Shoulder 3 View RT CPT Code: FULL RESULT: EXAM: RIGHT SHOULDER RADIOGRAPHY EXAM DATE: 09/30/2018 08:48 AM. CLINICAL HISTORY: HISTORY OF MALIGNANT NEOPLASM OF LEFT BREAST,IMPIN. Chronic shoulder pain. COMPARISON: SHOULDER 3 VIEW RT 04/23/2013 9:31 AM. TECHNIQUE: 3 views. FINDINGS: Mild sclerosis with mild subchondral cysts seen at the distal clavicle is seen with mild degenerative joint disease. The glenohumeral joint appears within normal limits. No acute fracture or dislocation is seen in the alignment is within normal limits. No evidence for bone metastasis. IMPRESSION: No evidence for bone metastasis. No acute bone findings are seen. See above. RADIA
== END 2018-09-30 08:25 | disposition home or self-care (01) ==
LOC: DI 08:24
PROVIDERS: ATTEND Internal Medicine
DX: M25.871 Other specified joint disorders, right ankle and foot (principal); M89.8X1 Other specified disorders of bone, shoulder

== ENCOUNTER 2018-10-04 08:34 | Outpatient (CLI) | payer MEDICARE ==
--- NOTE | 2018-10-04 16:30 | Nuclear Medicine Report ---
Reason: HISTORY OF MALIGNANT NEOPLASM OF LEFT BREAST,IMPIN Procedure Date: 10/04/2018 Accession Number: [id number] / [id number] Procedure: NM - Bone Whole Body CPT Code: FULL RESULT: EXAM: BONE SCAN EXAM DATE: 10/04/2018 01:35 PM. CLINICAL HISTORY: Left breast cancer treated in 2001. Diffuse bone pain. COMPARISON: SHOULDER 3 VIEW RT 09/30/2018 8:26 AM ABDOMEN/PELVIS W/ 03/08/2018 12:10 PM. TECHNIQUE: Following the intravenous administration of 30.4 mCi of technetium 99m MDP and an appropriate delay, a whole-body scan was performed in anterior and posterior projections. Site-specific spot views of the region of interest were obtained in various projections. FINDINGS: Exam Quality: Normal overall osseous radiotracer uptake. Physiological tracer uptake in bilateral collecting systems. Skull: No focal uptake. Thorax: No focal lesions in ribs or sternum. Pelvis: No focal lesions. Spine: No suspicious focal uptake in the cervical or thoracic or lumbar spine. There is degenerative endplate uptake in the lumbar spine, most focally at L2-L3 and L3-L4 levels. There is a mild convex right lumbar scoliosis. Extremities: There is increased uptake at the great toe MTP joints, right greater than left. There is nonspecific focally increased uptake in bilateral hand joints. IMPRESSION: No scintigraphic findings highly concerning for skeletal metastatic disease. RADIA
== END 2018-10-04 08:35 | disposition home or self-care (01) ==
LOC: DI 08:34
PROVIDERS: ATTEND Internal Medicine
DX: Z85.3 Personal history of malignant neoplasm of breast (principal); M54.9 Dorsalgia, unspecified; M25.511 Pain in right shoulder; M25.512 Pain in left shoulder; M79.671 Pain in right foot
CPT/HCPCS: 78306

== ENCOUNTER 2020-08-21 08:21 | Outpatient (CLI) | payer MEDICARE, OTHER ==
[2020-08-21 12:28] LABS: BASOPHILS % (AUTO) 0.4 %; EOSINOPHILS # (AUTO) 0.2 10^3/uL (0.0-0.7); EOSINOPHILS % (AUTO) 2.1 %; HCT - HEMATOCRIT 49.9 % (42.0-52.0); HGB - HEMOGLOBIN 17.3 g/dL (14.0-18.0); LYMPHOCYTES # (AUTO) 1.9 10^3/uL (1.5-3.5); LYMPHOCYTES % (AUTO) 26.1 %; MEAN CORPUSCULAR HEMOGLOBIN 32.7 pg (27.0-31.0); MEAN CORPUSCULAR HGB CONC 34.7 g/dL (32.0-36.0); MEAN CORPUSCULAR VOLUME 94.3 fL (80.0-94.0); MEAN PLATELET VOLUME 11.1 fL (7.4-11.4); MONOCYTES # (AUTO) 0.7 10^3/uL (0.0-1.0); MONOCYTES % (AUTO) 9.3 %; NEUTROPHILS # (AUTO) 4.4 10^3/uL (1.5-6.6); NEUTROPHILS % (AUTO) 61.7 %; PLT - PLATELET COUNT 229 10^3/uL (130-450); RED BLOOD COUNT 5.29 10^6/uL (4.70-6.10); RED CELL DISTRIBUTION WIDTH 13.3 % (12.0-15.0); WHITE BLOOD COUNT 7.2 x10^3/uL (4.8-10.8)
[2020-08-21 12:46] LABS: ALBUMIN/GLOBULIN RATIO 1.3 (1.0-2.2); ALKALINE PHOSPHATASE 69 IU/L (42-121); ALT ALANINE AMINOTRANSFERASE 21 IU/L (10-60); AST ASPARTATE AMINOTRANSFERASE 19 IU/L (10-42); BILIRUBIN,TOTAL 1.1 mg/dL (0.2-1.0); BUN - BLOOD UREA NITROGEN 17 mg/dL (6-20); CALCIUM 9.5 mg/dL (8.5-10.3); CARBON DIOXIDE - CO2 24 mmol/L (21-32); CHLORIDE 102 mmol/L (101-111); CHOL/HDL RATIO 4.1 (<5.0); CHOLESTEROL 200 mg/dL; CREATININE 1.1 mg/dL (0.6-1.2); GFR - MDRD 66 (>89); GLUCOSE 96 mg/dL (70-100); HDL CHOLESTEROL 49 mg/dL; LDL CHOLESTEROL,CALCULATED 132 mg/dL; LDL/HDL RATIO 2.7 (<3.6); SODIUM 137 mmol/L (135-145); TRIGLYCERIDES 94 mg/dL; VLDL CHOLESTEROL 19 mg/dL
[2020-08-21 12:56] LABS: THYROID STIMULATING HORMONE 2.86 uIU/mL (0.34-5.60)
== END 2020-08-21 08:22 | disposition home or self-care (01) ==
LOC: LAB.N 08:21
PROVIDERS: ATTEND Internal Medicine
DX: E78.2 Mixed hyperlipidemia (principal); Z12.5 Encounter for screening for malignant neoplasm of prostate; R00.0 Tachycardia, unspecified; Z79.899 Other long term (current) drug therapy
CPT/HCPCS: 36415; 80053; 80061; 84443; 85025; G0103; 83721; 84153

== ENCOUNTER 2021-08-20 10:40 | Outpatient (CLI) | payer MEDICARE ==
[2021-08-20 18:22] LABS: BASOPHILS % (AUTO) 0.4 %; EOSINOPHILS # (AUTO) 0.2 10^3/uL (0.0-0.7); EOSINOPHILS % (AUTO) 2.5 %; HGB - HEMOGLOBIN 17.6 g/dL (14.0-18.0); LYMPHOCYTES # (AUTO) 2.4 10^3/uL (1.5-3.5); MEAN CORPUSCULAR HEMOGLOBIN 32.5 pg (27.0-31.0); MEAN CORPUSCULAR HGB CONC 34.5 g/dL (32.0-36.0); MEAN CORPUSCULAR VOLUME 94.1 fL (80.0-94.0); MEAN PLATELET VOLUME 10.9 fL (7.4-11.4); MONOCYTES # (AUTO) 0.8 10^3/uL (0.0-1.0); MONOCYTES % (AUTO) 9.9 %; NEUTROPHILS # (AUTO) 4.3 10^3/uL (1.5-6.6); NEUTROPHILS % (AUTO) 55.8 %; PLT - PLATELET COUNT 250 10^3/uL (130-450); RED BLOOD COUNT 5.42 10^6/uL (4.70-6.10); RED CELL DISTRIBUTION WIDTH 13.6 % (12.0-15.0); WHITE BLOOD COUNT 7.7 x10^3/uL (4.8-10.8)
[2021-08-22 23:36] LABS: ANA SCREEN NEGATIVE (NEGATIVE)
[2021-08-27 22:41] LABS: ANCA SCREEN NEGATIVE (NEGATIVE)
== END 2021-08-20 10:41 | disposition home or self-care (01) ==
LOC: LAB.N 10:40
PROVIDERS: ATTEND Ophthalmology
DX: H15.001 Unspecified scleritis, right eye (principal)
CPT/HCPCS: 36415; 81599; 82164; 83520; 84550; 85025; 85651; 86021; 86036; 86038; 86592; 86780